=== PATIENT | male | born 1940 | race Caucasian/White ===

== ENCOUNTER 2018-05-11 11:21 | Inpatient (IN) ==
--- NOTE | 2018-05-11 11:58 | History & Physical Report ---
Date of Encounter: 05/11/18 Time of Encounter: 11:58 24 Hour HP Update - Instructions Instructions: If the History and Physical is less than 30 days old and was completed prior to A.M. admission and or procedure and has NOT been updated on calendar day of procedure please complete this update prior to performing procedure. - Update Patient reports changes in Medical Condition: No Changes in examination, assessment, or condition: No Changes in Medication: No Preop tests/diagnostics Reviewed: Yes Surgery Remains Indicated: Yes Consent for Planned Operative Procedure(s) Verified: Yes - Pre-Operative Checklist Preoperative Checklist Indicated: No Prophylactic Antibiotic Ordered: Yes
[2018-05-11] MEDS ORDERED: CeFAZolin Syr 2,000MG/20 ML 2,000 MG/20 ML SYRINGE IVPB ONE (12:02)
[2018-05-11] MEDS ORDERED: Ringers Solution, Lactated 1,000 ML IVC SCH (12:15)
--- NOTE | 2018-05-11 12:53 | Anesthesia Evaluation PreOp ---
Date of Encounter: 05/11/18 Time of Encounter: 13:03 - Past History Planned Operation: R revision patella compartment Cardiac History: HTN, Hyperlipidemia Pulmonary History: Denies Any Significant HX JUVENILE COURT JUDGE History: Denies Any Significant HX Other Medical History: Other (mechanical loosening prosthetic joint component) Anesthesia History: No Prior Anesthetic Complications, Past Anesthesia (R TKR, left cataract) Alcohol Use: none Drug use: none Medications and Allergies Aspirin [Adult Aspirin Regimen] 81 mg PO DAILY 05/11/18 [History] Clindamycin [Cleocin] 150 mg PO Q6HR #7 capsule 05/11/18 [Rx] Lisinopril-HCTZ 20-12.5 [Prinzide 20-12.5] 1 tab PO DAILY 05/11/18 [History] [place]-3/Dha/Epa/Fish Oil [Fish Oil 1,000 mg Softgel] 1 cap PO DAILY 05/11/18 [History] OxyCODONE Immed Rel [Roxicodone 5 MG] 5 mg PO Q6HR PRN 5 Days #20 tablet 05/11/18 [Rx] Allergy/AdvReac Type Severity Reaction Status Date / Time No Known Allergies Allergy Verified 05/11/18 12:26 - Meds/Allergy Pre-op Review Medications Reviewed: Yes Allergies Reviewed: Yes Beta Blockers on Current Med List: No Anesthesia Results - Labs Laboratory Tests 05/09/18 05/09/18 05/09/18 14:11 14:11 14:11 WBC 9.6 Hgb 14.7 Hct 44.1 Plt Count 262 PT 10.8 INR 1.0 APTT 30.6 Sodium 138 Potassium 4.0 Chloride 104 Carbon Dioxide 24 BUN 23 Creatinine 1.42 H Est GFR (Non-Af Amer) 48 L - Imaging EKG: report reviewed Anesthesia Exam Vital Signs/O2 Sat/Glucose, Most Recent Temp Pulse Resp BP Pulse Ox 98.3 F 79 18 118/78 96 05/11/18 12:18 05/11/18 12:18 05/11/18 12:18 05/11/18 12:18 05/11/18 12:18 Weight: 79 kg NPO (# of Hours): > 8 hr - HEENT Pupil (Motor): Pupils equal Mallampati: II Teeth: Edentulous Oral Opening: Greater than 3 - [address] JUDGE LOC: Oriented JUVENILE [employer] JUDGE Motor: Normal RUE, Normal LUE, Normal RLE, Normal LLE, Normal Face JUVENILE COURT JUDGE Sensory: Normal: RUE, LUE, RLE, LLE, Face - Cardiac Rhythm: Regular Murmur: None - Pulmonary Breath Sounds: bilateral Clear Respiratory Effort: Symmetrical Anesthesia Assess/Plan ASA Score: 2 Modified [place] Scale for Level of Consciousness: Cooperative, oriented, and tranquil Anesthetic Plan: General, Regional Monitoring Plan: Standard Monitors Recovery Plan: PACU
[2018-05-11] MEDS ORDERED: Acetaminophen IV 1,000 MG/100 ML INFUS..BTL IVPB ONE (12:59)
[2018-05-11] MEDS ORDERED: Famotidine 20 MG/2 ML VIAL IVP ONE (12:59)
[2018-05-11] MEDS ORDERED: Gabapentin 300 MG CAPSULE PO ONE (12:59)
[2018-05-11] MEDS ORDERED: Celecoxib 200 MG CAPSULE PO ONE (13:00)
[2018-05-11] MEDS ORDERED: ROPIVACAINE HCL/PF 0.5% 30 ML VIAL ONE (13:07)
[2018-05-11] MEDS ORDERED: Bupivacaine/Clonidine Syringe 1 EACH SYRINGE ONE (13:07)
[2018-05-11] MEDS ORDERED: Gabapentin 300 MG CAPSULE ONE (13:10)
[2018-05-11] MEDS ORDERED: Celecoxib 100 MG CAPSULE PO ONE (13:10)
[2018-05-11] MEDS ORDERED: Acetaminophen IV 1,000 MG/100 ML INFUS..BTL ONE (13:12)
[2018-05-11] MEDS ORDERED: Famotidine 20 MG/2 ML VIAL ONE (13:12)
[2018-05-11] MEDS ORDERED: *HR* FentaNYL (PF) 100 MCG/2 ML VIAL ONE (13:21)
[2018-05-11] MEDS ORDERED: *HR* Propofol 200 MG/20 ML VIAL IVP ONE (13:44)
[2018-05-11] MEDS ORDERED: *HR* Midazolam HCl 2 MG/2 ML VIAL ONE (13:44)
[2018-05-11] MEDS ORDERED: Ethanol\\Acetic Acid\\Na Ace\\Ben 1,000 ML IRRIG.SOLN IR ONE (14:42)
[2018-05-11] MEDS ORDERED: *HR* PHENYLEPHRINE 1,000 MCG/10 ML SYRINGE IVP ONE (15:13)
[2018-05-11] MEDS ORDERED: *HR* OxyCODONE Immed Rel 5 MG TABLET PO PRN ×2 (15:17→16:37)
[2018-05-11] MEDS ORDERED: *HR* FentaNYL (PF) 100 MCG/2 ML VIAL IVP PRN (15:17)
[2018-05-11] MEDS ORDERED: Ondansetron 4 MG/2 ML VIAL IVP PRN ×2 (15:17→16:37)
[2018-05-11] MEDS ORDERED: Dexamethasone 4 MG/ML VIAL ONE (15:18)
[2018-05-11] MEDS ORDERED: Ondansetron 4 MG/2 ML VIAL ONE (15:18)
[2018-05-11] MEDS ORDERED: Naloxone 0.4 MG/ML INJ IVP PRN (16:37)
[2018-05-11] MEDS ORDERED: Sennosides 8.6 MG TABLET PO PRN (16:37)
[2018-05-11] MEDS ORDERED: *HR* OxyCODONE/APAP 5/325 TABLET PO PRN (16:37)
[2018-05-11] MEDS ORDERED: traMADol 50 MG TABLET PO PRN (16:37)
[2018-05-11] MEDS ORDERED: MOM Conc 10 ML UD.LIQ PO PRN (16:37)
[2018-05-11] MEDS ORDERED: Temazepam 15 MG CAPSULE PO PRN (16:37)
[2018-05-11 16:38] LABS: Hemoglobin 13.1 g/dL (12.9-16.9)
--- NOTE | 2018-05-11 19:19 | Physician Discharge Referral ---
<Venice Josegermán Vázquez - Last Filed: 05/11/18 13:36> Home Health/Hosp Referral Info Transfer to: Home Health Provider in Charge Post Discharge: PCP - Diagnosis (1) History of orthopedic surgery Priority: Primary Status: Acute (2) Patellar instability of right knee Priority: Primary Status: Acute - Respiratory Orders None Smoking Cessation: Smoking cessation has been advised. For more information, call the [place] Tobacco Quit Line at 7-730-OWME-NOW. - Diet/Nutrition Diet/Nutrition Orders: Regular - Activity Activity Orders: Up ad gail, Ambulate, Walker - Services Needed Following services are medically necessary services: Nursing, Home Health Aide, Physical Therapy, Occupational Therapy Home Care Orders: Opsite dressing, leave intact until first post-operative visit. If dressing becomes >50% saturated, contact office, remove dressing and place appropriate dressing in its place. Do not allow for dressing to get wet. Zipline in place, plan to remove at post-operative day #14-16. Total Joint Precautions x 6 weeks Apply cold therapy wrap 3-6x/day for 20 minutes at a time. Encourage ambulation throughout the day Use Incentive spirometer 10x/hour. Elevate affected extremity above heart as tolerated. Brace: Wear knee brace/cast at all times, no knee flexion. *OK to remove if braced to allow for daily cleanses. WBAT. - Transfer Medications Prescriptions: Clindamycin [Cleocin] 150 mg PO Q6HR #7 capsule OxyCODONE Immed Rel [Roxicodone 5 MG] 5 mg PO Q6HR PRN 5 Days #20 tablet PRN Reason: Pain Home Medications: Aspirin [Adult Aspirin Regimen] 81 mg PO DAILY 05/11/18 [History] Clindamycin [Cleocin] 150 mg PO Q6HR #7 capsule 05/11/18 [Rx] Lisinopril-HCTZ 20-12.5 [Prinzide 20-12.5] 1 tab PO DAILY 05/11/18 [History] [place]-3/Dha/Epa/Fish Oil [Fish Oil 1,000 mg Softgel] 1 cap PO DAILY 05/11/18 [History] OxyCODONE Immed Rel [Roxicodone 5 MG] 5 mg PO Q6HR PRN 5 Days #20 tablet 05/11/18 [Rx] Allergies/Adverse Reactions: Allergy/AdvReac Type Severity Reaction Status Date / Time No Known Allergies Allergy Verified 05/11/18 12:26 Certification: Further, I certify that my clinical findings support that this patient is homebound (i.e. absences from home require considerable and taxing effort and are for medical reasons or tenriism services or infrequently or short duration when for other reasons) because: Homebound Reason: Post-surgery restriction and or conditions limit ability to leave home Attestation: My signature below is to certify that this patient is under my care and that I, or nurse practitioner, or a physician's development assistant working with me, has a [id number] encounter with this patient. <Kraig Hobson - Last Filed: 05/11/18 13:56> - Respiratory Orders Smoking Cessation: Smoking cessation has been advised. For more information, call the [place] Tobacco Quit Line at 9-913-IHHM-NOW. Certification: Further, I certify that my clinical findings support that this patient is homebound (i.e. absences from home require considerable and taxing effort and are for medical reasons or tenriism services or infrequently or short duration when for other reasons) because: Attestation: My signature below is to certify that this patient is under my care and that I, or nurse practitioner, or a physician's development assistant working with me, has a kupa-[id number] encounter with this patient.
--- NOTE | 2018-05-11 19:21 | Discharge Summary ---
Orders not resulted at time of discharge: Pending orders 05/11/18 11:59 XR knee RT 1-2V [XR] Routine Hemoglobin and Hematocrit [HEME] Routine 05/11/18 12:59 US anesthesia pain block [US] Routine Date of Encounter: 05/14/18 Time of Encounter: 10:57 - Discharge Diagnosis (1) Hypertension Priority: Secondary Status: Chronic Qualifiers: Hypertension type: unspecified secondary hypertension Qualified Code(s): I15.9 - Secondary hypertension, unspecified; I15 - Secondary hypertension (2) Hyperlipidemia Priority: Secondary Status: Chronic Qualifiers: Hyperlipidemia type: unspecified Qualified Code(s): E78.5 - Hyperlipidemia, unspecified (3) History of orthopedic surgery Priority: Secondary Status: Chronic (4) Patellar instability of right knee Priority: Primary Status: Acute - Hospital Course Hospital course: Mr. Schulz is a 78 year old male The patient had an uneventful postoperative course. They received antibiotics and physical therapy and were discharged in stable condition. There will follow-up in the office in 2 weeks. - Time Spent with Patient Total time spent providing and/or coordinating discharge services: - Discharge Medications Home Medications: Aspirin [Adult Aspirin Regimen] 81 mg PO DAILY 05/11/18 [History] Clindamycin [Cleocin] 150 mg PO Q6HR #7 capsule 05/11/18 [Rx] Lisinopril-HCTZ 20-12.5 [Prinzide 20-12.5] 1 tab PO DAILY 05/11/18 [History] [place]-3/Dha/Epa/Fish Oil [Fish Oil 1,000 mg Softgel] 1 cap PO DAILY 05/11/18 [History] OxyCODONE Immed Rel [Roxicodone 5 MG] 5 mg PO Q6HR PRN 5 Days #20 tablet 05/11/18 [Rx] Allergies/Adverse Reactions: Allergy/AdvReac Type Severity Reaction Status Date / Time No Known Allergies Allergy Verified 05/11/18 12:26 Primary care physician: Jackeline Alston CNP - Patient Status Disposition: Home Health Service Condition: Good Functional capacity at discharge: uses cane/walker Overall status at discharge: patient is progressing back to baseline - Discharge Instructions Follow Up With: Latha Jose PAC [Physician Law Reporter] - 05/17/18 11:15 am Jackeline Alston CNP [Primary Care Provider] - Additional Instructions: Discharge Instructions: Total Knee Replacement Please call [facility] ([phone]), your Primary Care Physician, or report to the Emergency Room if you have any of the following symptoms: Nausea, vomiting, fever greater that 101.5, swelling, chest pain, shortness of breath, increased pain/redness/drainage/odor for your incision site, numbness/tingling, or any other concerning symptoms. ACTIVITY:Weight-bearing as tolerated. You may progress off support (crutches or walker) as tolerated. Incentive Spirometer 10 times an hour. Wear T-Scope brace at all times. No knee motion. MEDICATIONS: Upon discharge resume your home medications. Take all the medications as prescribed. Take a stool softener if taking narcotic pain medications. Stool softeners are only effective if you drink enough fluids. Drink 6-8 glass of water or fluids a day, unless this is not allowed for another health problem. Despite using stool softeners, if you haven't had a bowel mo vement in 3 days, please switch to a gentle laxative. Gentle laxatives are sold over the counter. You should have a bowel movement within 24 hours, if not call the office. You will be discharged from the hospital with a prescription for pain medication. You are encouraged to decrease the use of narcotic pain medication as tolerated. Should you require a refill, please call the office. [facility] prescribes narcotic pain medication for only 4-6 weeks after surgery. If you require pain medication beyond this time period, you may be referred to your Primary Care Physician or to the Pain Clinic for further evaluation. Plan ahead for refills on pain medication as many narcotics either need to be picked up at the office or mailed. It is best to call 48-72 hours in advance of needing a prescription refill so you don't run out of medication. To help control the post-operative pain, you may take NSAIDs (Aleve,Advil, Motrin, Ibuprofen, Naprosyn) or Tylenol as prescribed on the bottle in addition to the pain medication. ANTICOAGULATION (blood thinners): Continue your Aspirin, Lovenox or Coumadin as prescribed to help prevent a blood clot in the leg or in the lungs. As long as your incision remains dry and you tolerate the NSAIDs (Aleve, Advil, Motrin, ibuprofen, naprosyn), it is OK to use the NSAIDS while you are taking your anticoagulation medication. Should your incision start to drain, stop the NSAID and contact our office. Common symptoms of blood clot in the legs include: localized pain, swelling, calf tenderness, redness or discoloration of the skin. Blood clot in the lung symptoms include: shortness of breath, rapid pulse, sweating, and chest pain that worsens with deep breathing, coughing up blood, lightheadedness, feelings of anxiety. If you experience any of these symptoms notify your physician immediately, go to the emergency room, or if having trouble breathing, call 911. WOUND CARE: Leave the dressing on for 7 to 10days. You may change the dressing if it becomes saturated greater than 50%. Do not get the dressing wet at anytime. Wash your hands with antibacterial soap, rinse and dry prior to any wound care. If you have kristel the visiting nurse or rehab facility can remove the stapes 10-14 days after surgery and place steri-strips across the wound. Leave the steri-strips in place until they fall off on their won. You may let water from the shower run on top of the steri-strips. If you do not have a visit ing nurse or rehab facility, you will need to return to the office at 10-14 days for the kristel to be removed. If you have itching or redness around the dressing call the office. FOLLOW-UP: Please follow up with your surgeon in the orthopedic clinic in 4 weeks from the day of surgery. If you have kristel that need to be removed, you will need to come back to the office in 10-14 days from the day of surgery.
--- NOTE | 2018-05-11 19:24 | Anesthesia Procedures ---
Date of Encounter: 05/11/18 Time of Encounter: 14:31 Procedures: Anesthesia - Nerve Block Procedure Date: 05/11/18 Time: 14:31 Allergies/Adv Reactions: Allergies No Known Allergies Allergy (Verified 05/11/18 12:26) Surgical Procedure: right patella compartment revision Checklist: Correct Patient Identifier, Correct procedure, History checked Correct side: Right Blood Thinner: No Monitor Applied: EKG, BP, Pulse Oximetry Supplemental Oxygen via Nasal Cannula (L/min): 2 Sedation: Versed (mg): 1 Sedation: Fentanyl (mcg): 50 Indication: Post Op Analgesia Pre-op Neuro Deficits: No Block Type: Femoral Catheter placed: No Sterile Technique: Yes Ultrasound used: Yes Anatomy identified: Yes Visual spread of Local: Yes Nerve Stimulator Range: >0.4 - 0.6 mA Blood on Needle Aspiration: No Smooth Injection of Local: Yes Pain with Injection of Local: Yes Prep: Chlorhexadine Needle: 22 x 50 mm Stimuplex Local: Ropivacaine (and decadron) Volume (cc): 30 Number of Attempts: 1
--- NOTE | 2018-05-11 19:32 | Orthopedic Operative Note ---
Date of procedure: 05/11/18 Pre-op diagnosis: Right patella component dissociation Post-op diagnosis: same Procedure: Procedure: Right Revision of patella component, extensor realignment, lateral release Estimated blood loss: 50 mL Hardware Arthrex 40 mm patella Findings lateral tracking of patella with complete dissociation of patella component from patella Procedure: Patient brought to the operating room and placed on the operating room table. After general anesthesia was administered the right knee was examined patient noted to have significant abnormal swelling with a well-healed incision full flexion and extension lateral tracking patella. The right lower extremity was prepped and draped in the sterile surgical fashion patient IV antibiotic prior skin incision. A standard midline incision was made centered over the patella through the old incision. Incision made through the skin and subcutaneous tissue hemostasis was obtained with Bovie cautery. A medial parapatellar approach was performed. Fluid was normal joint fluid and sent for Gram stain and culture. The patella component was free floating and removed The patella was everted. It was transected below the component interface. It was sized to a 40, the 40 Guide was seated lug holes are drilled. The component was cemented in place and held with the patellar holding clamp. The knee was irrigated out with Bactisure. It was then irrigated out pulse irrigation. A lateral release was performed, The extensor mechanism was repaired in a pants over vest fashion 3 #5 FiberWire suture. The extensor mechanism was then completed repair with a running #2 FiberWire suture. Subcutaneous tissues irrigated and closed deep #1 PDS suture superficially with 0 PDS sutures skin was closed with skin kristel patient was placed in a sterile dressing postoperative brace extubated transferred to recovery room in stable condition. Anesthesia: GETA Surgeon: Kraig Hobson Was there an dietary assistant present: No Estimated blood loss (cc): 50 Condition: stable Disposition: PACU
--- NOTE | 2018-05-11 19:35 | Anesthesia Evaluation Post Op ---
Date of Encounter: 05/11/18 Time of Encounter: 16:17 - Vital Signs Vital Signs: Vital Signs/O2 Sat/Glucose, Most Recent Temp Pulse Resp BP Pulse Ox 98.7 F 78 16 117/75 95 05/11/18 15:52 05/11/18 16:12 05/11/18 16:12 05/11/18 16:12 05/11/18 16:12 - Lungs Lungs: Clear Ascult./Percussion - Airway Airway: Non-obstructed - Cardiovascular Regular Rate - Mental Status Mental Status: Alert & Oriented, Answers Appropriately - Pain Pain Scale: 0 - Nausea Vomiting Nausea Vomiting: Not Present - Hydration Hydration: Tolerates oral liquids - Discharge PostOp Status: Transfer Patient to floor
[2018-05-11] MEDS: Ringers Solution, Lactated 1,000 ML IVC SCH ×2 (19:56→19:59)
[2018-05-12 06:23] LABS: Hematocrit 40.8 % (37.5-50.1); Hemoglobin 13.8 g/dL (12.9-16.9)
[2018-05-12 06:42] LABS: BUN/Creatinine Ratio 19 (6-26); Blood Urea Nitrogen 24 mg/dL (8-23); Calcium 9.3 mg/dL (8.6-10.3); Carbon Dioxide 27 mEq/L (23-29); Chloride 105 mEq/L (98-107); Glucose 142 mg/dL (70-105); Osmolality,Calculated 296 (280-300); Potassium 4.2 mEq/L (3.5-5.1); Sodium 140 mEq/L (136-145); eGFR For Non-African Americans 56 (> 60)
[2018-05-12] MEDS ORDERED: Aspirin Enteric Coated 81 MG Tablet PO SCH (09:00)
[2018-05-12] MEDS ORDERED: (Omega-3/Dha/Epa/Fish Oil [Fish Oil 1,000 Mg Softgel]) PO SCH (09:00)
[2018-05-12] MEDS ORDERED: Lisinopril-HCTZ 20-12.5mg TABLET PO SCH (09:00)
--- NOTE | 2018-05-12 10:34 | Orthopedics Progress Note ---
Date of Encounter: 05/12/18 Time of Encounter: 10:33 Subjective Interval history: S: Patient is seen today and has no complaints. O: Afebrile and vital signs are stable Operative extremity dressing is clean, dry, and intact. Neurovascularly intact distally A: Right patellar component revision P: Resume postoperative intermediate today Objective Vital signs: Vital Signs Temp Pulse Resp BP Pulse Ox 05/12/18 06:59 98.4 F 80 16 116/70 94 05/12/18 04:11 97.6 F 80 16 115/77 96 05/11/18 23:22 97.6 F 76 16 113/74 95 05/11/18 20:03 97.7 F 66 16 97/66 94 05/11/18 18:50 97.6 F 60 14 122/78 97 05/11/18 17:50 97.7 F 70 15 119/76 95 05/11/18 17:20 97.6 F 72 16 124/84 95 05/11/18 16:50 97.4 F L 78 16 128/79 96 05/11/18 16:22 99.1 F 76 16 116/78 96 05/11/18 16:12 78 16 117/75 95 05/11/18 16:02 75 16 113/82 95 05/11/18 15:52 98.7 F 77 16 129/83 94 05/11/18 14:50 67 16 117/80 95 05/11/18 14:33 78 16 105/77 94 05/11/18 13:25 74 16 147/91 96 05/11/18 12:18 98.3 F 79 18 118/78 96 05/11/18 11:48 98.3 F 79 18 118/78 96 Intake and Output 05/11/18 05/12/18 05/12/18 23:59 07:59 15:59 Intake Total 1210 / 1210 0 / 0 720 / 720 Output Total 425 / 425 850 / 850 600 / 600 Balance 785 / 785 -850 / -850 120 / 120 Intake: IV Fluids 1100 / 1100 Lactated Ringers 1,000 ML @ 75 1000 / 1000 mls/hr IVC .[id number] GABRIELA Rx#: [id number] Ancef 2,000 MG In 0.9 % Sodium 100 / 100 Chloride 100 ML @ 200 mls/hr IVPB Q8H GABRIELA Rx#:[id number] Oral 50 / 50 0 / 0 720 / 720 Free Water 60 / 60 Output: Urine 425 / 425 850 / 850 600 / 600 Other: Meal Breakfast Percent of Meal Consumed 100% Weight 80 kg Patient Weight 05/12/18 23:59 Weight 80 kg - Labs CBC & BMP: 05/12/18 05:23 05/12/18 05:23 Labs: Abnormal lab results BUN 24 mg/dL (8-23) H 05/12/18 05:23 Est GFR (Non-Af Amer) 56 (> 60) L 05/12/18 05:23 Glucose 142 mg/dL (70-105) H 05/12/18 05:23 - VTE Documentation of Mechanical Device: Venous foot pump, device Consult Discharge Plan - Plan Referrals: Jackeline Alston BUSINESS SERVICES OFFICER [Primary Care Provider] -
[2018-05-12 15:50] VITALS: BP 134/87
== END 2018-05-12 18:25 | disposition home health service (06) | DRG 468 ==
LOC: SAMDAY 11:21 → 3NENU 16:35
PROVIDERS: ADMIT Orthopaedic Surgery; ATTEND Orthopaedic Surgery